=== PATIENT | female | born 1940 | race Caucasian/White ===

== ENCOUNTER 2018-12-23 11:13 | Emergency (ER) | payer MEDICARE, OTHER ==
[~2018-12-23] VITALS: Ht 149.9 cm; Wt 63.1 kg
[2018-12-23 11:23] VITALS: BP 168/89
[2018-12-23] MEDS ORDERED: AZIT250T83 PO (13:16)
[2018-12-23] MEDS ORDERED: ALBU18HF2 INH (13:16)
== END 2018-12-23 13:30 | disposition home or self-care (01) ==
LOC: ER 11:14
DX: J20.9 Acute bronchitis, unspecified (principal); Z79.2 Long term (current) use of antibiotics; Z79.899 Other long term (current) drug therapy
CPT/HCPCS: 99283

== ENCOUNTER 2018-12-26 13:32 | Emergency (ER) | payer MEDICARE, OTHER ==
[~2018-12-26] VITALS: Ht 149.9 cm; Wt 61.0 kg
[~2018-12-26 13:32] MED LIST: ALBU18HF2 INH; AZIT250T83 PO
[2018-12-26] MEDS ORDERED: methylPREDNISolone sod succ 125mg/2ml vial IV ONE ×2 (14:00→15:05)
[2018-12-26] MEDS ORDERED: normal saline 1000ML IV soln IVB ONE (14:00)
[2018-12-26] MEDS ORDERED: ipratropium/albuterol 3ml nebule NEB ONE (14:00)
--- NOTE | 2018-12-26 14:15 | NUR ---
PATIENT STATES SHE HAS HAD BRONCHITIS FOR THE PAST 2 WEEKS AND IS FEELING WEAK AND DIZZY. SHE DOES NOT FEEL LIKE SHE IS GETTING ANY BETTER.
[2018-12-26 14:41] LABS: BASOPHILS # (AUTO) 0.2 X10'3 (0-0.2); BASOPHILS % (AUTO) 1.3 % (0-1); EOSINOPHILS # (AUTO) 0.4 X10'3 (0-0.9); EOSINOPHILS % (AUTO) 3.1 % (0-6); HEMATOCRIT 38.7 % (35.0-45.0); HEMOGLOBIN 13.4 g/dl (12.0-16.0); LYMPHOCYTES # (AUTO) 1.8 X10'3 (1.1-4.8); LYMPHOCYTES % (AUTO) 14.3 % (21-51); MEAN CORPUSCULAR HEMOGLOBIN 32.2 PG (27.0-31.0); MEAN CORPUSCULAR HGB CONC 34.6 g/dL (33.0-36.5); MEAN PLATELET VOLUME 7.7 FL (7.4-10.4); MONOCYTES # (AUTO) 1.9 X10'3 (0-0.9); MONOCYTES % (AUTO) 15.6 % (2-12); NEUTROPHILS # (AUTO) 8.2 X10'3 (1.8-7.7); NEUTROPHILS % (AUTO) 65.7 % (42-75); PLATELET COUNT 360 X10'3 (140-440); RED BLOOD COUNT 4.16 X10'6 (4.20-5.60); WHITE BLOOD COUNT 12.4 X10'3 (4.5-11.0)
[2018-12-26] MEDS ORDERED: CefTRIAXone 2gm/D5W 50ml 50 ML IV ONE (14:50)
[2018-12-26 14:51] LABS: ALANINE AMINOTRANSFERASE 32 U/L (12-78); ALBUMIN 3.5 G/DL (3.4-5.0); ALBUMIN/GLOBULIN RATIO 0.8 (1.1-1.5); ALKALINE PHOSPHATASE 97 IU/L (46-116); ANION GAP 8 (8-16); ASPARTATE AMINO TRANSFERASE 22 U/L (10-37); BILIRUBIN,TOTAL 0.3 MG/DL (0.1-1.0); BLOOD UREA NITROGEN 18 MG/DL (7-18); BUN/CREATININE RATIO 20.5 (6.6-38.0); CALCIUM 8.8 MG/DL (8.5-10.1); CHLORIDE 103 MMOL/L (99-107); CREATININE 0.88 MG/DL (0.40-0.90); GLUCOSE 89 MG/DL (70-104); POTASSIUM 4.1 MMOL/L (3.5-5.1); SODIUM 135 MMOL/L (135-145); TOTAL CARBON DIOXIDE 24.1 MMOL/L (24-32); TOTAL PROTEIN 7.8 G/DL (6.4-8.2); eGFR 62 ML/MIN
[2018-12-26 15:16] LABS: GIANT PLATELET FEW; PLATELET ESTIMATE NORMAL
[2018-12-26] MEDS ORDERED: AMOX-422 PO (16:06)
[2018-12-26] MEDS ORDERED: PRED20TA PO (16:06)
[2018-12-26] MEDS ORDERED: GUAI120015 PO (16:06)
[2018-12-26 16:51] VITALS: BP 156/86
== END 2018-12-26 17:07 | disposition home or self-care (01) ==
LOC: ER 13:33
DX: J18.9 Pneumonia, unspecified organism (principal); R42 Dizziness and giddiness; Z79.899 Other long term (current) drug therapy; Z87.891 Personal history of nicotine dependence
CPT/HCPCS: 36415; 71045; 80053; 85025; 93005; 94640; 94760; 96365; 96375; 99284; J0696; J2930; J7030

== ENCOUNTER 2020-03-11 12:30 | Emergency (ER) | payer MEDICARE, BC ==
[~2020-03-11] VITALS: Ht 149.9 cm; Wt 68.0 kg
[~2020-03-11 12:30] MED LIST changes: -ALBU18HF2 INH; +ALBU8.5H8 IH; +AZI25OT PO; -AZIT250T83 PO; +BENZ-16 PO; +BENZ1LOZ30 MM; +BUDE10.22 INH; +HYDR-4383 PO; +IPRA3AMP9 NEB; +LACT1CAP26 PO
[2020-03-11 14:59] VITALS: BP 150/99
== END 2020-03-11 14:58 | disposition home or self-care (01) ==
LOC: ER 12:30
DX: S00.03XA Contusion of scalp, initial encounter (principal); R42 Dizziness and giddiness; Z79.2 Long term (current) use of antibiotics; Z79.899 Other long term (current) drug therapy; W10.9XXA Fall (on) (from) unspecified stairs and steps, initial encounter; Y93.89 Activity, other specified; Y92.89 Other specified places as the place of occurrence of the external cause; Y99.8 Other external cause status
CPT/HCPCS: 70450; 99284